=== PATIENT | male | born 1980 | race Caucasian/White ===

== ENCOUNTER 2022-05-27 17:06 | Emergency (ER) | payer BC, OTHER ==
[~2022-05-27] VITALS: Ht 182.9 cm; Wt 75.0 kg
[2022-05-27 17:11] VITALS: BP 118/83
[2022-05-27] MEDS ORDERED: proparacaine 0.5% ophthalmic drops 15ml EACHEYE ONE (18:00)
[2022-05-27] MEDS ORDERED: ERYT1OIN6 RIGHTEYE (19:11)
[2022-05-27] MEDS ORDERED: erythromycin ophthalmic ointment 1gm tube RIGHTEYE ONE (19:15)
== END 2022-05-27 19:29 | disposition home or self-care (01) ==
LOC: ER 17:07
DX: S05.01XA Injury of conjunctiva and corneal abrasion without foreign body, right eye, initial encounter (principal); T15.11XA Foreign body in conjunctival sac, right eye, initial encounter; Z79.1 Long term (current) use of non-steroidal anti-inflammatories (NSAID); X58.XXXA Exposure to other specified factors, initial encounter; Y93.89 Activity, other specified; Y92.89 Other specified places as the place of occurrence of the external cause; Y99.8 Other external cause status
CPT/HCPCS: 65222; 99284